=== PATIENT | female | born 1960 | race Caucasian/White ===

== ENCOUNTER 2021-07-02 10:36 | Emergency (ER) | payer OTHER ==
[~2021-07-02] VITALS: Ht 152.4 cm; Wt 66.2 kg
--- NOTE | 2021-07-02 11:05 | NUR ---
Patient to ER bed 3 to gown for evaluation. Side rails up. Report given to TOM Meehan.
--- NOTE | 2021-07-02 11:07 | NUR ---
PT CAME IN FROM HOME C/O RIGHT CALF PAIN AND LEFT GREAT TOE PAIN SINCE FRIDAY MORNING. PT STATES SHE DROPPED A FROZEN 16LB TURKEY ONTO LEFT FOOT/TOE- TOE IS BRUISED AND TENDER. PT DENIES ANY INJURY TO RIGHT LEG, DENIES HX OF BLOOD CLOTS-NO REDNESS OR SWELLING. PT IS AMBULATORY, AAOX4, V/S STABLE
[2021-07-02 11:09] VITALS: BP_SYST 145
--- NOTE | 2021-07-02 11:15 | NUR ---
ER DR. LOWE AT THE BEDSIDE EXAMINING PT
[2021-07-02] MEDS ORDERED: ACETAMINOPHEN 500 MG TABLET PO ONE (11:30)
--- NOTE | 2021-07-02 11:40 | NUR ---
POTABLE X-RAY AT THE BEDSIDE
--- NOTE | 2021-07-02 12:00 | NUR ---
ULTRASOUND AT THE BEDSIDE
--- NOTE | 2021-07-02 12:37 | NUR ---
PT AMBULATES TO BATHROOM WITH STEADY GAIT
--- NOTE | 2021-07-02 12:45 | NUR ---
PT PROVIDED WITH DEREK TAPE TO LEFT 1ST AND 2ND TOE, ORTHO SHOE FITTED. PT TOLERATED WELL
[2021-07-02 12:57] VITALS: BP_SYST 136
--- NOTE | 2021-07-02 12:58 | NUR ---
Patient given written and verbal discharge instructions and verbalizes understanding. ER MD discussed with patient the results and treatment provided. Patient in stable condition. ID arm band removed. NO Rx given. Patient educated on pain management and to follow up with PMD. Pain Scale 0/10. Opportunity for questions provided and answered. Medication side effect fact sheet provided.
== END 2021-07-02 12:57 | disposition home or self-care (01) ==
LOC: SED 10:36
DX: S92.421A Displaced fracture of distal phalanx of right great toe, initial encounter for closed fracture (principal); S86.111A Strain of other muscle(s) and tendon(s) of posterior muscle group at lower leg level, right leg, initial encounter; W20.8XXA Other cause of strike by thrown, projected or falling object, initial encounter; Y93.89 Activity, other specified; Y92.89 Other specified places as the place of occurrence of the external cause; Y99.8 Other external cause status
CPT/HCPCS: 93971; 99284